=== PATIENT | female | born 1995 | race Caucasian/White ===

== ENCOUNTER 2019-05-05 21:08 | Inpatient (IN) | payer MEDICAID ==
[~2019-05-05] VITALS: Ht 152.4 cm; Wt 72.7 kg
[2019-05-05 22:55] VITALS: Ht 152.4 cm; Wt 72.7 kg
[2019-05-05 22:56] VITALS: BP 114/66; PULSE 86; RESP 17
[2019-05-05] MEDS: LACTATED RINGER'S 1,000 ML IV SCH (23:45)
--- NOTE | 2019-05-05 23:52 | HP ---
Date/Time of Note Date/Time of Note DATE: 05/05/19 TIME: 23:49 OB - History Hx of Present Chief Complaint: post date Estimated Due Date: May 05, 2019 : 2 Para: 1 Spontaneous : 0 Therapeutic : 0 Care: Other (late care) Obstetrical Complications: None Medical Complications: None Past Family/Social History * Past Medical, Surgical, Family and Obstetric Histories reviewed from chart. GBS Status: Unknown OB Admission Exam Vital Signs Vital Signs Vital Signs Date Temp Pulse Resp B/P (MAP) Pulse Ox O2 O2 Flow FiO2 Time Delivery Rate 05/05/19 98.2 86 17 114/66 Room Air 22:56 (82) Physical Exam HEENT: WNL Heart: Rhythm Normal Lungs: Clear, Equal Abdomen: WNL Extremities: Normal Reflexes: Normal Cervical Dilatation: 2cm Effacement: 50% Station: -1 Membranes: Intact Heart Rate: 130's Accelerations: Accelerations Present Decelerations: Variable Decelerations Varibility: Moderate OB Assessment/Plan Reason for admission: other Other Assessment: Term heart deceleration Plan: Other Other plan: Admit IV hydration Oxygen Deliver YAAKOV VAZQUEZ MD May 05, 2019 23:52
[2019-05-06] MEDS ORDERED: BUTORPHANOL 2 MG INJ IV PRN
[2019-05-06] MEDS ORDERED: LIDOCAINE 1% (MPF) 30 ML INJ INJ PRN
[2019-05-06] MEDS ORDERED: AMPICILLIN 2 GM/NS (PMX) 100 ML IV ONE
[2019-05-06] MEDS ORDERED: OXYTOCIN 30 UNITS/LR 500 ML IV SCH ×2
[2019-05-06] MEDS: LACTATED RINGER'S 1,000 ML IV SCH ×2 (01:15→09:26)
[2019-05-06] MEDS ORDERED: CARBOPROST 250 MCG INJ IM PRN ×3 (01:30→19:00)
[2019-05-06] MEDS ORDERED: CEFAZOLIN 2 GM/50 ML (PMX) 50 ML IVPB SCH (01:30)
[2019-05-06] MEDS ORDERED: METHYLERGONOVINE 0.2 MG INJ IM PRN ×3 (01:30→19:00)
[2019-05-06] MEDS ORDERED: OXYTOCIN 30 UNITS/LR 500 ML IV PRN ×4 (01:30→19:00)
[2019-05-06] MEDS ORDERED: MISOPROSTOL 200 MCG TAB PR PRN ×3 (01:30→19:00)
[2019-05-06] MEDS: AMPICILLIN 1 GM/NS (PMX) 50 ML IV SCH ×3 (05:14→13:07)
--- NOTE | 2019-05-06 15:06 | QN ---
Documentation Comment Late entry note. Patient seen at 1030 this morning 24 years old 2 para 1-0-0-1 with single intrauterine at 40 weeks and 1 day heart rate category 1 Continue external monitoring and toco SVE: /-2/cephalic/intact/AROM done/clear Pitocin for augmentation of labor. Continue current management NERISSA HERNDON May 06, 2019 15:06
--- NOTE | 2019-05-06 15:11 | LDN ---
Date/Time of Note Date/Time of Note DATE: 05/06/19 TIME: 15:06 Delivery Summary 24 years old 2 para 1-0-0-1 with single intrauterine at 40 weeks and 1 day delivered a viable female at 1423 with first-degree posterior vaginal and anterior labial laceration. Nose and mouth suctioned. Rest of body delivered. Cord clamped and cut after stopping pulsation. Baby given to the nurse. Placenta delivered intact and spontaneously with three- vessel cord. Laceration repaired with 2 oh cut current SH needle. Patient tolerated procedure well. weight: 3360 g - 7 pounds 7 ounces Height 19.5 9 at 1 minutes and 9 at 5 minutes EBL 200 mL Weeks of Gestation 40 weeks and 1 day Placenta Delivered: Spontaneously Meconium: none Episiotomy: No Estimated blood loss: 200 Sponge & Needle done & correct: Yes All needle counts correct: Yes Any foreign bodies felt in the: No Delivery Information Sex Infant Sex: female Apgars 1 Minute: 9 5 Minute: 9 10 Minute: 10 Suctioning Nose & mouth suctioned at miladys: Yes Umbilical Cord Umbilical cord with: 3 Vessels Cord presentations: no nuchal cord Cord Blood was obtained: Yes (Any ball back on how much she was holding) Mother & Baby Disposition Disposition Mom & Baby to Maternity; Good: Yes NERISSA HERNDON May 06, 2019 15:11
--- NOTE | 2019-05-06 17:25 | QN ---
Documentation Comment Please see the note NERISSA HERNDON May 06, 2019 15:09
[2019-05-06 18:00] VITALS: BP 109/55; PULSE 76; RESP 18
[2019-05-06] MEDS ORDERED: DEXTROSE 5%-LR 1,000 ML IV SCH (18:32)
[2019-05-06] MEDS: LACTATED RINGER'S 1,000 ML IV* SCH (18:32)
[2019-05-06] MEDS ORDERED: ZOLPIDEM 5 MG TAB PO PRN (19:00)
[2019-05-06] MEDS ORDERED: ACETAMINOPHEN 325 MG TAB PO PRN (19:00)
[2019-05-06] MEDS ORDERED: LANOLIN HPA 1 PKT TOP PRN (19:00)
[2019-05-06] MEDS ORDERED: DIPHENHYDRAMINE 50 MG INJ IV PRN (19:00)
[2019-05-06] MEDS ORDERED: WITCH HAZEL/GLYCERIN PAD PR PRN (19:00)
[2019-05-06] MEDS ORDERED: OXYCODONE/ASPIRIN (4.88/325) TAB PO PRN (19:00)
[2019-05-06] MEDS ORDERED: ONDANSETRON 4 MG INJ IV PRN (19:00)
[2019-05-06] MEDS ORDERED: DIBUCAINE 1% 30 GM OINT TOP PRN (19:00)
[2019-05-06] MEDS ORDERED: BENZOCAINE 20% 56 ML SPRAY TOP PRN (19:00)
[2019-05-06 21:00] VITALS: BP 105/52; PULSE 80; RESP 17
[2019-05-07] MEDS: IBUPROFEN 600 MG TAB PO SCH ×5 (00:12→23:34)
[2019-05-07] MEDS: LACTATED RINGER'S 1,000 ML IV* SCH (02:05)
[2019-05-07 04:00] VITALS: BP 105/57; PULSE 84; RESP 18
[2019-05-07 07:50] VITALS: BP 110/59; PULSE 84; RESP 18
[2019-05-07 12:15] VITALS: BP 99/63; PULSE 66; RESP 20
[2019-05-07 15:30] VITALS: BP 105/64; PULSE 89; RESP 18
[2019-05-07 20:00] VITALS: BP 114/73; PULSE 99; RESP 18
[2019-05-07] MEDS: MAGNESIUM HYDROXIDE 30ML CUP PO PRN (23:34)
[2019-05-07] MEDS: SENNA/DOCUSATE NA (8.6MG/50MG) TAB PO PRN (23:34)
[2019-05-08 04:00] VITALS: BP 110/65; PULSE 81; RESP 18
[2019-05-08] MEDS: IBUPROFEN 600 MG TAB PO SCH ×3 (06:00→17:27)
[2019-05-08 08:30] VITALS: BP 114/75; PULSE 68; RESP 18
[2019-05-08] MEDS ORDERED: MEASLES,MUMPS,RUBELLA VACCINE INJ SC* ONE (09:00)
[2019-05-08] MEDS ORDERED: DIPHTH/TET/ACEL PERTUSS (ADULT) 0.5 ML VIAL IM* ONE (09:00)
[2019-05-08] MEDS: MAGNESIUM HYDROXIDE 30ML CUP PO PRN (10:57)
[2019-05-08] MEDS: SENNA/DOCUSATE NA (8.6MG/50MG) TAB PO PRN (10:57)
--- NOTE | 2019-05-08 15:51 | PD.PPDC ---
ELECTRIC SERVICEMAN Discharge Instruction Diagnosis [id number] Final Diagnosis: Iqgsi1z s/p Condition [id number] Patient Condition: [id number] Stable Diet [id number] Diet: Dhybu9m Resume Regular Diet Activity/Restrictions [id number] Activity: Pwtiw8f May Shower Sncev2Ra Restrictions: Qszva3n No Lifting No Sexual Activity Nothing in the Vagina No Catarina No Tampons, douche Follow-up Follow-up with Physician: Week/Weeks Return to clinic for [id number] CLIENT PROFESSIONAL Instructions: Onpax0f Fever greater than 101 Chills Worsening abdominal pain Excessive Vaginal Bleeding More than 2 pads per hour Unable to tolerate diet Gtsdj2Ck OB Instructions: Rkyri5d Breast Tenderness Depression Blurried Vision Headache DORETHA MARAVILLA MD May 08, 2019 15:51
[2019-05-08 15:53] VITALS: BP 108/67; PULSE 83; RESP 18
--- NOTE | 2019-05-08 16:29 | DS ---
Date/Time of Note Date/Time of Note DATE: 05/08/19 TIME: 16:28 Obstetrical Discharge Record Final Diagnosis Final Diagnosis: Term delivered Vaginal Delivery Obstetrical Delivery: Spontaneous, Laceration, Repaired Complications Augmentation: No Induction: No Rupture of Membranes: No Condition on Discharge Physical Assessment Last Vitals: vss afebrile Voiding: Yes Bowel Movement: Yes Breast: Soft, non-tender Fundus: Firm Calf Tenderness: No Patient Condition: Stable DORETHA MARAVILLA MD May 08, 2019 16:29
--- NOTE | 2019-05-09 19:15 | DELSUM ---
Delivery Summary A-C Datetime Report Generated by CPN: 05/09/2019 19:14 DELIVERY PERSONNEL Senior Sales Engineer: Ayala, Suzie MATERNAL INFORMATION Delivery Anesthesia: None Medications in Delivery: pitocin, ampicillin Delivery QBL (ml): 200 Placenta Cultured: No Maternal Complications: None LABOR SUMMARY EDC: 05/05/2019 00:00 No. Babies in Womb: 1 Attempted: No Labor Anesthesia: IV Sedation LABOR INFORMATION Reason for Induction: IUGR Cervical Ripening Agents: Cytotec @ Oxytocin: Induction Group B Beta Strep: Not Done Antibiotics # of Doses: 4 Antibiotics Time of Last Dose: 05/06/2019 13:15 Steroids Given: None Reason Steroids Not Administered: Not Applicable MEMBRANES Membranes Rupture Method: Artificial Rupture of Membranes: 05/06/2019 11:55 Length of Rupture (hr): 2.47 Amniotic Fluid Color: Clear Amniotic Fluid Amount: Small Amniotic Fluid Odor: None STAGES OF LABOR Stage 3 hr: 0 Stage 3 min: 1 VAGINAL DELIVERY Episiotomy: None Laceration Extension: Second Degree Laceration Type: Perineal Other Laceration: with cyst removed Laceration Repair: Yes Initial Vag Sponge Count: 10 Final Vag Sponge Count: 10 Initial Vag Sharps Count: 1 Final Vag Sharps Count: 2 Sponge Count Correct: Yes Sharps Count Correct: Yes BABY A INFORMATION Infant Delivery Date/Time: 05/06/2019 14:23 Method of Delivery: Vaginal Born in Route : No : N/A Forceps: N/A Vacuum Extraction: N/A Shoulder Dystocia : No SHOULDER DYSTOCIA BABY A Infant Delivery Date/Time: 05/06/2019 14:23 PRESENTATION/POSITION BABY A Presentation: Cephalic Cephalic Presentation: Vertex Vertex Position: Left Occipital Anterior Breech Presentation: N/A PLACENTA INFORMATION BABY A Placenta Delivery Time : 05/06/2019 14:24 Placenta Method of Delivery: Spontaneous Placenta Status: Delivered SCORES BABY A Heart Rate 1 min: >100 bpm Resp Effort 1 min: Good Cry Reflex Irritability 1 min: Cough/Sneeze/Pulls Away Muscle Tone 1 min: Active Motion Color 1 min: Body [place], Extremit Blue Resuscitation Effort 1 min: Tactile Stimulation SCORE 1 MIN: 9 Heart Rate 5 min: >100 bpm Resp Effort 5 min: Good Cry Reflex Irritability 5 min: Cough/Sneeze/Pulls Away Muscle Tone 5 min: Active Motion Color 5 min: Body [place], Extremit Blue Resuscitation Effort 5 min: Tactile Stimulation SCORE 5 MIN: 9 INFANT INFORMATION BABY A Gestational Age at Delivery: 40.1 Gestational Status: Full Term- 39- 40.6 Weeks Outcome : Liveborn Condition : Stable Sex: Female IDENTIFICATION/MEDS BABY A ID Band Number: [id number] ID Band Location: Right Leg; Left Arm Sensor Applied: Yes Sensor Number: [id number] Sensor Location : Cord Clamp Vitamin K Given : Aquamephyton 1 mg IM Erythromycin Given: Given Both Eyes WEIGHT/LENGTH BABY A Birthweight (gm): 3360 Weight (lb): 7 Weight (oz): 7 Infant Length (in): 19.50 Infant Length (cm): 49.53 CORD INFORMATION BABY A No. Cord Vessels: 3 Nuchal Cord : N/A Cord Blood Taken: Yes Suction: Mouth; Nose ASSESSMENT BABY A Infant Complications: None Physical Findings at Delivery: Within Normal Limits Infant Respirations: Appears Normal Die Filer/ALS Called : No Care By: TM Transferred To: Remains with Mother
== END 2019-05-08 19:10 | disposition home or self-care (01) | DRG 807 ==
LOC: OBT 21:08 → L-D 21:10 → OBT 23:30 → L-D 23:30 → PP1 05-06 17:48
PROVIDERS: ADMIT Obstetrics & Gynecology; ATTEND Obstetrics & Gynecology
PROC: 10E0XZZ Delivery of Products of Conception, External Approach (ICD-10-PCS; principal; 2019-05-06)
PROC: 0HQ9XZZ Repair Perineum Skin, External Approach (ICD-10-PCS; 2019-05-06)
PROC: 10907ZC Drainage of Amniotic Fluid, Therapeutic from Products of Conception, Via Natural or Artificial Opening (ICD-10-PCS; 2019-05-06)
PROC: 4A1HXCZ Monitoring of Products of Conception, Cardiac Rate, External Approach (ICD-10-PCS; 2019-05-06)
DX: O76 Abnormality in fetal heart rate and rhythm complicating labor and delivery (principal); Z37.0 Single live birth; O48.0 Post-term pregnancy; Z3A.40 40 weeks gestation of pregnancy; O70.0 First degree perineal laceration during delivery
CPT/HCPCS: 62322; 76815; 76818; 85025; 85610; 85730; 86592; 86850; 86900; 86901; 87340; G0463; J0290; J0595; J2590; J7120; J7121